=== PATIENT | female | born 1945 | race Caucasian/White ===

== ENCOUNTER → 2023-08-18 14:53 | Outpatient (REF) | payer OTHER, SELFPAY | LOC: DHCBC HW 14:53 | PROVIDERS: ATTENDING PHYSICIAN Nurse Practitioner Gerontology; FAMILY PHYSICIAN Internal Medicine | DX: I31.39 Other pericardial effusion (noninflammatory) (principal) | CPT/HCPCS: 93308 ==

== ENCOUNTER → 2024-04-09 06:45 | Outpatient (REF) | payer OTHER, SELFPAY ==
--- NOTE | 2024-04-09 14:41 | OID.BR.INTR ---
[facility] Breast Navigator - Initial
- -
Date of Contact: 04/09/24
Met with patient. Patient given written information on navigator services available at [facility]. Will follow up as needed per protocol.
== END ==
LOC: WDC 06:45
PROVIDERS: ATTENDING PHYSICIAN Internal Medicine; PRIMARYCARE PHYSICIAN Internal Medicine
DX: R92.1 Mammographic calcification found on diagnostic imaging of breast (principal)
CPT/HCPCS: 88305; 19081; 76098; A4648

== ENCOUNTER → 2024-09-03 13:55 | Outpatient (REF) | payer OTHER, SELFPAY | LOC: HWRCS 13:55 | PROVIDERS: ATTENDING PHYSICIAN Internal Medicine Cardiovascular Disease; FAMILY PHYSICIAN Internal Medicine | DX: I31.39 Other pericardial effusion (noninflammatory) (principal); I35.0 Nonrheumatic aortic (valve) stenosis | CPT/HCPCS: 93306 ==

== ENCOUNTER → 2025-06-03 12:30 | Outpatient (REF) | payer OTHER, SELFPAY | LOC: HWRAD 12:30 | PROVIDERS: ATTENDING PHYSICIAN Internal Medicine | DX: M81.0 Age-related osteoporosis without current pathological fracture (principal); M85.80 Other specified disorders of bone density and structure, unspecified site | CPT/HCPCS: 77080 ==